=== PATIENT | female | born 1990 | race Two or more races ===

== ENCOUNTER 2022-02-10 18:38 | Emergency (ER) | payer SELFPAY ==
[~2022-02-10] VITALS: Ht 167.6 cm; Wt 66.0 kg
[2022-02-10] MEDS ORDERED: OLANZAPINE 10MG TABLET PO STA (20:39)
[2022-02-10] MEDS ORDERED: LORAZEPAM 1MG TABLET PO ONE (20:45)
[2022-02-10 21:11] LABS: BASOPHILS % 0.3 % (0.0-2.0); EOSINOPHILS % 0.2 % (0.0-5.0); HEMATOCRIT. 39.5 % (36.0-48.0); LYMPHOCYTES % 10.6 % (20.0-50.0); MEAN CORPUSCULAR HEMOGLOBIN 29.6 pg (28.0-32.0); MEAN CORPUSCULAR VOLUME 89.7 fL (81.0-99.0); MEAN PLATELET VOLUME 9.1 fl (7.4-10.4); MONOCYTES % 4.9 % (2.0-8.0); PLATELET 317 x1000/uL (130-400); RED CELL DISTRIBUTION WIDTH 14.1 % (11.6-14.6)
[2022-02-10 21:15] LABS: CHLORIDE 99 mEq/L (98-107)
[2022-02-10 21:23] LABS: CLARITY URINE CLOUDY (CLEAR); COLOR URINE YELLOW (YELLOW); KETONES URINE 2+ (NEGATIVE); LEUKOCYTE ESTERASE URINE 2+ (NEGATIVE); NITRITE URINE NEGATIVE (NEGATIVE); OCCULT BLOOD URINE TRACE (NEGATIVE); PH URINE 5.5 (4.5-8.0); PROTEIN URINE NEGATIVE (NEGATIVE); SPECIFIC GRAVITY URINE 1.012 (1.005-1.030); UROBILINOGEN URINE 0.2 E.U./dL (0.2-1.0)
[2022-02-10 21:24] LABS: HCG SCREEN NEGATIVE
[2022-02-10 21:32] LABS: ETHANOL BLOOD < 10 mg/dL
[2022-02-10 21:33] LABS: *AMPHETAMINES SCREEN URINE NEGATIVE (NEGATIVE); *BARBITURATES SCREEN URINE NEGATIVE (NEGATIVE); *BENZODIAZEPINES SCREEN URINE NEGATIVE (NEGATIVE); *COCAINE SCREEN URINE NEGATIVE (NEGATIVE); METHADONE URINE SCREEN NEGATIVE (NEGATIVE); OPIATES URINE SCREEN NEGATIVE (NEGATIVE); PHENCYCLIDINE URINE SCREEN NEGATIVE (NEGATIVE)
[2022-02-10 21:42] LABS: CANNABINOID URINE SCREEN PRESUMTIVE POSITIVE (NEGATIVE)
[2022-02-10] MEDS ORDERED: NITROFURANTOIN 100MG M/M CAPSULE PO ONE (23:15)
[2022-02-11] MEDS: NITROFURANTOIN 100MG M/M CAPSULE PO SCH ×2 (09:57→23:40)
[2022-02-11] MEDS ORDERED: RISPERIDONE 0.5MG TABLET PO SCH (11:00)
[2022-02-11] MEDS ORDERED: LORAZEPAM 1MG TABLET PO ONE (21:30)
[2022-02-11] MEDS ORDERED: LORAZEPAM 1MG TABLET PO NR (23:30)
[2022-02-12] MEDS: NITROFURANTOIN 100MG M/M CAPSULE PO SCH ×2 (09:29→21:45)
[2022-02-12] MEDS: RISPERIDONE 0.5MG TABLET PO SCH (21:45)
[2022-02-12] MEDS: TRAZODONE HCL 50MG TABLET PO SCH (21:45)
[2022-02-13] MEDS ORDERED: DIPHENHYDRAMINE 25MG CAPSULE PO ONE (03:45)
[2022-02-13] MEDS ORDERED: DIPHENHYDRAMINE 25MG CAPSULE PO NR (04:00)
[2022-02-13] MEDS: NITROFURANTOIN 100MG M/M CAPSULE PO SCH ×2 (09:27→21:00)
[2022-02-13] MEDS: RISPERIDONE 0.5MG TABLET PO SCH ×2 (09:27→21:00)
[2022-02-13] MEDS: TRAZODONE HCL 50MG TABLET PO SCH (21:00)
[2022-02-14] MEDS: RISPERIDONE 0.5MG TABLET PO SCH (09:16)
[2022-02-14] MEDS: NITROFURANTOIN 100MG M/M CAPSULE PO SCH (09:16)
[2022-02-14] MEDS ORDERED: RISP05 MT (14:22)
[2022-02-14] MEDS ORDERED: NITR-87 MT (14:22)
[2022-02-14 16:35] VITALS: BP 118/72
== END 2022-02-14 16:51 | disposition home or self-care (01) ==
LOC: ER 18:38 → EDSEX 18:38 → ER 02-14 16:51
DX: U07.1 COVID-19 (principal); F29 Unspecified psychosis not due to a substance or known physiological condition; R45.851 Suicidal ideations; F22 Delusional disorders
CPT/HCPCS: 36415; 80053; 80305; 80307; 80320; 80329; 81003; 81025; 83735; 84443; 84703; 85025; 99285; C9803; U0003; U0005; Z7610; G0480

== ENCOUNTER 2022-02-15 12:25 | Emergency (ER) | payer OTHER ==
[~2022-02-15] VITALS: Ht 165.1 cm; Wt 55.0 kg
[~2022-02-15 12:25] MED LIST: NITR-87 MT; RISP05 MT
[2022-02-15] MEDS ORDERED: LORAZEPAM 1MG TABLET PO ONE (13:30)
[2022-02-15 15:44] LABS: BASOPHILS % 0.6 % (0.0-2.0); EOSINOPHILS % 0.4 % (0.0-5.0); HEMATOCRIT. 42.1 % (36.0-48.0); LYMPHOCYTES % 15.4 % (20.0-50.0); MEAN CORPUSCULAR HEMOGLOBIN 29.6 pg (28.0-32.0); MEAN CORPUSCULAR VOLUME 89.2 fL (81.0-99.0); MEAN PLATELET VOLUME 8.9 fl (7.4-10.4); MONOCYTES % 7.3 % (2.0-8.0); NEUTROPHILS % 76.3 % (40.0-76.0); PLATELET 348 x1000/uL (130-400); RED BLOOD CELL COUNT 4.72 mill/uL (4.2-5.4); RED CELL DISTRIBUTION WIDTH 13.9 % (11.6-14.6)
[2022-02-15 15:56] LABS: CHLORIDE 101 mEq/L (98-107)
[2022-02-15 16:04] LABS: ETHANOL BLOOD < 10 mg/dL
[2022-02-15 16:06] LABS: HCG SCREEN NEGATIVE
[2022-02-15 21:00] LABS: CLARITY URINE CLEAR (CLEAR); COLOR URINE YELLOW (YELLOW); KETONES URINE 1+ (NEGATIVE); LEUKOCYTE ESTERASE URINE 2+ (NEGATIVE); NITRITE URINE NEGATIVE (NEGATIVE); OCCULT BLOOD URINE NEGATIVE (NEGATIVE); PROTEIN URINE NEGATIVE (NEGATIVE); SPECIFIC GRAVITY URINE 1.012 (1.005-1.030); UROBILINOGEN URINE 0.2 E.U./dL (0.2-1.0)
[2022-02-15 21:15] LABS: *AMPHETAMINES SCREEN URINE NEGATIVE (NEGATIVE); *BARBITURATES SCREEN URINE NEGATIVE (NEGATIVE); *BENZODIAZEPINES SCREEN URINE NEGATIVE (NEGATIVE); *COCAINE SCREEN URINE NEGATIVE (NEGATIVE); METHADONE URINE SCREEN NEGATIVE (NEGATIVE); OPIATES URINE SCREEN NEGATIVE (NEGATIVE); PHENCYCLIDINE URINE SCREEN NEGATIVE (NEGATIVE)
[2022-02-15 21:32] LABS: CANNABINOID URINE SCREEN PRESUMTIVE POSITIVE (NEGATIVE)
[2022-02-16] MEDS: NITROFURANTOIN 100MG M/M CAPSULE PO SCH ×2 (09:20→21:45)
[2022-02-16] MEDS ORDERED: ARIPIPRAZOLE 5MG TABLET PO ONE (10:00)
[2022-02-16] MEDS ORDERED: RISPERIDONE 1MG TABLET PO SCH (21:00)
[2022-02-16] MEDS ORDERED: TRAZODONE HCL 50MG TABLET PO SCH (21:00)
[2022-02-17] MEDS: NITROFURANTOIN 100MG M/M CAPSULE PO SCH (09:45)
[2022-02-17] MEDS ORDERED: ARIPIPRAZOLE 5MG TABLET PO NR (11:45)
[2022-02-17 15:30] VITALS: BP 115/70
== END 2022-02-17 15:45 | disposition short-term general hospital (02) ==
LOC: ER 12:25
DX: F23 Brief psychotic disorder (principal); F41.9 Anxiety disorder, unspecified; R45.851 Suicidal ideations; Z20.822 Contact with and (suspected) exposure to COVID-19; Z75.1 Person awaiting admission to adequate facility elsewhere; Z91.14 Patient's other noncompliance with medication regimen
CPT/HCPCS: 36415; 80053; 80305; 80307; 80320; 80329; 81003; 84703; 85025; 99285; C9803; U0003; U0005; G0480